=== PATIENT | female | born 1965 | race Caucasian/White ===

== ENCOUNTER → 2017-03-03 | Outpatient (CLI) | payer BC | END | disposition home or self-care (01) | LOC: LAB.O 11:20 | PROVIDERS: ATTEND Nurse Practitioner Family | DX: E06.3 Autoimmune thyroiditis (principal); I10 Essential (primary) hypertension; Z13.1 Encounter for screening for diabetes mellitus ==

== ENCOUNTER → 2017-06-27 | Outpatient (CLI) | payer BC ==
--- NOTE | 2017-06-27 10:20 | MRI ---
Study: MRI Arthrogram of the Left Hip. Indication: HIP PAIN Technique: Multiplanar, multi sequence MRI of the left hip was obtained after intra-articular injection of contrast. Please see dedicated procedural report for additional details. Comparison: None. Findings: Irregular intermediate to high grade undersurface tearing throughout the base of the anterior superior left hip labrum extending from the 2:00 position to the 12:00 position. At this site there is rounding of the free edge with reduction in transverse width by 50%. There is loss of normal sphericity anterior superior margin of the femoral head neck junction. Slight labral over coverage of the left femoral head noted. No acute fracture or osteonecrosis. Smooth grade 2/3 chondral thinning throughout the left hip joint noted and most pronounced posteriorly. No full-thickness chondral defect. Tendinosis left hamstring tendon origin. Tendinosis left gluteus minimus/medius tendon insertions. No high-grade left hip tendon tear. Impression: Anterior superior left hip labral tearing. This in the setting of features which can be seen with cam and pincer type femoral acetabular impingement. Grade 2-3 chondrosis throughout the left hip joint. Electronically signed by: Thomas Campos MD 06/27/2017 10:19 AM CDT
--- NOTE | 2017-06-27 14:20 | RAD ---
EXAM DESCRIPTION: ARTHROGRAM HIP, LEFT: Radio-Fluoroscopy. CLINICAL HISTORY: PAIN COMPARISON: Post arthrogram MRI of the left hip after this procedure. TECHNIQUE: The procedure was explained to the patient with risks and benefits. The patient understood and gave verbal and written consent. 5 cc of nonionic contrast in one syringe; a contrast mixture of 10 cc nonionic contrast, 10 cc of topical anesthetic, and 0.1 cc of gadolinium was prepared in a second syringe. The patient is supine on the fluoroscopic table. Left hip in internal rotation. The left hip joint was localized by fluoroscopy. The skin overlying the base of the left femoral neck was marked and prepped with Betadine and sterile drape. Anesthetic was given sub-cutaneously and intradermally. Under fluoroscopic visualization, a 25-gauge spinal needle was introduced into the junction of the left femoral neck and head, A test injection of 2 cc of the contrast only was performed into the inferior joint capsule. An additional 12 cc of the contrast mixture was injected. The patient performed active exercise. The patient was transferred to the high-field MRI suite for multiplanar, multi-sequence scanning. There were no immediate complications. Single frontal image with left hip in internal rotation was recorded. Fluoroscopy time was 0.8 minutes. Dose was 49.5 mGy . IMPRESSION: Successful, fluoroscopic-guided injection of anesthetic, non-ionic contrast, and gadolinium into left hip joint, followed by MRI scan. Permanent images from this procedure are maintained in the patient's medical record. Electronically signed by: Jorge Dalal MD 06/27/2017 2:18 PM CDT
== END ==
LOC: MRI 07:58
PROVIDERS: ATTEND Nurse Practitioner Family
DX: M25.552 Pain in left hip (principal)

== ENCOUNTER → 2017-07-18 | Outpatient (CLI) | payer BC ==
--- NOTE | 2017-07-18 09:12 | RAD ---
EXAM DESCRIPTION: Pelvis CLINICAL HISTORY: 51 years Female, PAIN IN LEFT HIP COMPARISON: None. TECHNIQUE: Frontal x-ray view of the pelvis including both hips FINDINGS: Bones of the pelvic ring appear intact. No hip fracture or dislocation. Surgical clips are seen in the right lower quadrant. IMPRESSION: Negative for fracture or dislocation. Electronically signed by: Tomás Hayward MD 07/18/2017 9:11 AM CDT
--- NOTE | 2017-07-18 09:13 | RAD ---
EXAM DESCRIPTION: Hip,Left 2 Views CLINICAL HISTORY: 51 years, Female, PAIN IN LEFT HIP COMPARISON: None TECHNIQUE: AP and frog leg lateral views of the hip FINDINGS: 2 views of the left hip reveal no fracture or dislocation. No lytic bone lesion. Mild narrowing of the medial aspect of the hip joint. Stellate density in the left ilium is thought to be confluence of trabeculae or large bone island. This appears benign. Degenerative narrowing of the pubic symphysis. IMPRESSION: Negative for fracture or dislocation. Electronically signed by: Tomás Hayward MD 07/18/2017 9:12 AM CDT
== END ==
LOC: RAD 08:02
PROVIDERS: ATTEND Orthopaedic Surgery
DX: M25.552 Pain in left hip (principal)

== ENCOUNTER → 2017-12-08 | Outpatient (CLI) | payer BC | LOC: LAB.O 07:29 | PROVIDERS: ATTEND Nurse Practitioner Family | DX: I10 Essential (primary) hypertension (principal); E02 Subclinical iodine-deficiency hypothyroidism ==

== ENCOUNTER → 2019-02-10 | Outpatient (CLI) | payer BC | LOC: LAB.O 09:16 | PROVIDERS: ATTEND Nurse Practitioner Family | DX: I10 Essential (primary) hypertension (principal) ==

== ENCOUNTER → 2019-02-13 | Outpatient (CLI) | payer BC ==
--- NOTE | 2019-02-15 21:28 | MAM ---
EXAM DESCRIPTION: 3D Screening BILATERAL : Digital Mammography. CLINICAL HISTORY: 53 years Female ANNUAL SCREENING . No complaints. No personal or family history of breast cancer. Menarche age 11. Childbirth age 15. Menopause age 51. No HRT... Lifetime risk of developing breast cancer (Tyrer-Cuzick model)(%): 6.1 COMPARISON: Baseline study at this facility. No prior reports available. TECHNIQUE: Bilateral CC and MLO projection full-field images, digital tomosynthesis mammographic technique. Bilateral digital 2-D full-field MLO images. CAD not available for tomosynthesis or 2-D images. FINDINGS: The breast parenchymal density pattern is: Heterogeneously dense breast tissue, which may obscure small masses. No skin thickening or nipple retraction. Bilateral axillary lymph nodes. Slightly lobulated mass partially circumscribed margins middle third of the medial breast 3:30-4:00, approximately 7 cm from the nipple. No suspicious microcalcifications. Focal asymmetry middle third left breast 6 cm from the nipple, lower inner quadrant at 7:00. No suspicious microcalcifications. IMPRESSION: BI-RADS CATEGORY: 0 - INCOMPLETE- Need additional imaging evaluation. FOLLOW-UP: Recall for additional imaging: Bilateral directed breast ultrasound. Left breast full-field LM 2-D and tomosynthesis images.. Written communication concerning the IMPRESSION and Follow-up, will be mailed to the patient and referring health care provider. Electronically signed by: Jorge Dalal MD 02/15/2019 9:27 PM [employer]
== END | disposition home or self-care (01) ==
LOC: MAMMO 12:00
PROVIDERS: ATTEND Nurse Practitioner Family
DX: Z12.31 Encounter for screening mammogram for malignant neoplasm of breast (principal)

== ENCOUNTER 2019-02-16 05:38 | Day surgery (SDC) | payer BC ==
[2019-02-16] MEDS ORDERED: LACTATED RINGERS 1,000 ML ONE (05:56)
[2019-02-16] MEDS ORDERED: PHENYLEPHRINE INJ 1ML 10 MG/ML VIAL ONE (07:00)
[2019-02-16] MEDS ORDERED: PROPOFOL 200 MG/20 ML VIAL IV ONE (07:00)
[2019-02-16] MEDS ORDERED: LIDOCAINE 1% 10 ML VIAL INJ ONE (07:00)
[2019-02-16] MEDS ORDERED: MIDAZOLAM INJ 2 MG/2 ML VIAL ONE (09:48)
--- NOTE | 2019-02-16 10:59 | OP ---
DATE OF PROCEDURE: 02/16/19 PREOPERATIVE DIAGNOSIS: 1. Screening colonoscopy. POSTOPERATIVE DIAGNOSIS: 1. Screening colonoscopy. PROCEDURE: 1. Colonoscopy with hot snare removal of a 1 cm leaflet type polyp at 30 cm. No other polyps seen. SURGEON: Saturnino Son MD ANESTHESIA: General. COMPLICATIONS: None. ESTIMATED BLOOD LOSS: None. CONDITION: Stable. PLAN: Discharge. INDICATION: As stated. PROCEDURE: General anesthesia was induced in the lateral position. Digital rectal exam was normal. The scope was introduced without difficulty. Just as we got in the proximal mid sigmoid, I would say 30 cm on the scope, we noticed a reddened, leaflet type polyp, probably 3 different leaflets with it. We took it with a hot snare in 2 separate bites. The base appeared to have no residual. There was no bleeding upon advancement of the scope to the cecum without difficulty. On slow withdrawal, no other polyps were seen. The patient tolerated the procedure and was taken to Recovery to be discharged. #[id number] cc: HENRY Ritchie
[2019-02-16 11:03] VITALS: BP 140/89; TEMP 97.7; O2SAT 100
== END 2019-02-16 11:15 | disposition home or self-care (01) ==
LOC: AMB 05:38
PROVIDERS: ATTEND Surgery
DX: Z12.11 Encounter for screening for malignant neoplasm of colon (principal); K63.5 Polyp of colon; I10 Essential (primary) hypertension; E06.3 Autoimmune thyroiditis; D64.9 Anemia, unspecified; K59.00 Constipation, unspecified; E78.00 Pure hypercholesterolemia, unspecified; Z88.0 Allergy status to penicillin; Z90.49 Acquired absence of other specified parts of digestive tract; Z79.82 Long term (current) use of aspirin; Z79.899 Other long term (current) drug therapy
CPT/HCPCS: 00812; 45385; 81025; J2250; J3490; J7120

== ENCOUNTER → 2019-03-05 | Outpatient (CLI) | payer BC ==
--- NOTE | 2019-03-05 17:08 | MAM ---
EXAM DESCRIPTION: 3D Diagnostic, Bilateral (accession [id number]), Breast,Bilateral (accession [id number]): Ultrasound CLINICAL HISTORY: 53 yearsFemaleABNORMAL MAMMO mass density lower inner quadrant medial right breast. Focal asymmetry lower inner quadrant middle third left breast. Lifetime risk of developing breast cancer (Tyrer-Cuzick model)(%): 6.1. COMPARISON: Other TECHNIQUE: Bilateral LM projection full-field images, digital tomosynthesis technique. Bilateral 2-D digital full-field images. CC and MLO projections. CAD not available. . Transcutaneous scanning of the bilateral breast utilizing norman-scale and Doppler modes. Scanning performed by the child neurologist and Dr. Dalal. FINDINGS: The breast parenchymal density pattern is: Scattered areas of fibroglandular density No skin thickening or nipple retraction . Mass density in noted in the posterior third of the medial breast/lower inner quadrant right breast approximately 8 cm from the nipple. 3:00. Not as dense as the adjacent fibroglandular tissues. No microcalcifications. Approximately 5 mm mass density versus focal asymmetry in the lower inner quadrant of the anterior third of the left breast. 4 cm from the nipple at 8:00. Ultrasound: Scanning of the medial right breast mid and posterior third 2:00-4:00. No dominant solid mass or distinct cyst. No parenchymal edema or large calcifications. No overlying skin changes. A prominent echogenic structure proximally 7 mm diameter, with no acoustic shadowing, seen initially by the technicians and trades workers, could not be reproduced. Scanning of the lower inner quadrant of the anterior third of the left breast. Mixed echogenicity object predominantly hypoechoic cortex and echogenic centrally is visible at the 8:00 position 4 cm from the nipple. Dimensions 4.4 x 5.6 x 3.4 mm. Wider than tall orientation. Mixed posterior acoustic features. Nonvascular. Most likely a lymph node. IMPRESSION: Mammographic density medial posterior right breast not identified on ultrasound. BI-RADS CATEGORY: 3 - PROBABLY BENIGN. Management: Short interval (6-month) follow-up diagnostic digital right breast tomosynthesis and directed right breast ultrasound. The FINDINGS and the FOLLOW-UP plan were reviewed in person with the patient after the examination. Written communication explaining the IMPRESSION and FOLLOW-UP will be mailed to the patient and referring care provider. Electronically signed by: Jorge Dalal MD 03/05/2019 5:06 PM [facility]
== END ==
LOC: MAMMO 14:05
PROVIDERS: ATTEND Nurse Practitioner Family
DX: R92.2 Inconclusive mammogram (principal)
CPT/HCPCS: 76641; 77066; G0279

== ENCOUNTER → 2019-12-14 | Outpatient (CLI) | payer BC ==
--- NOTE | 2019-12-18 15:10 | MAM ---
EXAM DESCRIPTION: 3D Screening BILATERAL : Digital Mammography. CLINICAL HISTORY: 54 years Female SCREENING . No complaints. Not sure family history. Menarche age 11. Childbirth age 15. Menopause age 52. No HRT. Lifetime risk of developing breast cancer (Tyrer-Cuzick model)(%): 6.0. COMPARISON: Bilateral screening digital breast tomosynthesis January 2019. Bilateral diagnostic digital breast tomosynthesis and ultrasound February 2019. TECHNIQUE: Bilateral CC and MLO projection full-field images, digital tomosynthesis mammographic technique. Bilateral digital 2-D full-field MLO images. CAD available for 2-D images. FINDINGS: The breast parenchymal density pattern is: Scattered areas of fibroglandular density. No skin thickening or nipple retraction. Left axillary nodes. No new focal, stellate mass or density, focal asymmetry , and no suspicious microcalcifications bilaterally. Stable mammograms compared to prior screening study. IMPRESSION: Benign exam. BIRAD CATEGORY: 2 BENIGN FINDINGS. RECOMMENDATIONS: FOLLOW UP: Routine digital bilateral mammographic screening, one year interval from November 2019. Written communication explaining the IMPRESSION and follow-up, will be mailed to the patient and referring health care provider. According to the [employer], yearly mammograms are recommended starting at age 40 and continuing as long as a woman is in good health. Any breast change noted on a breast self-exam should be reported promptly to the patient's healthcare provider. Breast MRI is recommended for women with an approximately 20-25% or greater lifetime risk of breast cancer, including women with a strong family history of breast or ovarian cancer and women who have been treated for Hodgkin's disease. A negative mammographic report should not delay tissue diagnosis in patients with significant clinical history or physical findings. Extremely dense breast tissue limits the sensitivity of digital mammography. Electronically signed by: Jorge Dalal MD 12/18/2019 3:08 PM CDT
== END ==
LOC: MAMMO 14:00
PROVIDERS: ATTEND Nurse Practitioner Family
DX: Z12.31 Encounter for screening mammogram for malignant neoplasm of breast (principal)